=== PATIENT | female | born 1990 | race Two or more races ===

== ENCOUNTER 2020-08-14 08:19 | Outpatient (CLI) | payer OTHER | END 2020-08-14 08:31 | disposition home or self-care (01) | LOC: SONOGRAMA 08:19 | PROVIDERS: ATTEND Obstetrics & Gynecology | DX: N83.292 Other ovarian cyst, left side (principal) ==

== ENCOUNTER 2021-03-19 08:06 | Outpatient (CLI) | payer OTHER | END 2021-03-19 08:16 | disposition home or self-care (01) | LOC: MAMO-SONO 08:06 | PROVIDERS: ATTEND General Practice | DX: N60.11 Diffuse cystic mastopathy of right breast (principal); N60.12 Diffuse cystic mastopathy of left breast; Z12.39 Encounter for other screening for malignant neoplasm of breast ==

== ENCOUNTER 2022-04-15 17:25 | Outpatient (CLI) | payer OTHER | END 2022-04-15 17:55 | disposition home or self-care (01) | LOC: NST 17:25 | PROVIDERS: ATTEND Obstetrics & Gynecology Maternal & Fetal Medicine | DX: Z34.83 Encounter for supervision of other normal pregnancy, third trimester (principal) ==

== ENCOUNTER 2022-05-13 14:43 | Outpatient (CLI) | payer OTHER | END 2022-05-13 15:56 | disposition home or self-care (01) | LOC: NST 14:43 | PROVIDERS: ATTEND Obstetrics & Gynecology Gynecology | DX: Z34.83 Encounter for supervision of other normal pregnancy, third trimester (principal) ==

== ENCOUNTER 2022-05-14 12:00 | Inpatient (IN) | payer OTHER ==
[~2022-05-14] VITALS: Ht 157.5 cm; Wt 2.7 kg
== END 2022-05-17 14:12 | disposition home or self-care (01) | DRG 788 ==
LOC: LDR 12:00 → OB/GYN 05-15 18:39
PROVIDERS: ADMIT Obstetrics & Gynecology Maternal & Fetal Medicine; ATTEND Obstetrics & Gynecology Maternal & Fetal Medicine
PROC: 4A1HXCZ Monitoring of Products of Conception, Cardiac Rate, External Approach (ICD-10-PCS; 2022-05-14)
PROC: 10D00Z1 Extraction of Products of Conception, Low, Open Approach (ICD-10-PCS; principal; 2022-05-14 18:15)
DX: O14.14 Severe pre-eclampsia complicating childbirth (principal); O34.211 Maternal care for low transverse scar from previous cesarean delivery; Z3A.37 37 weeks gestation of pregnancy; Z37.0 Single live birth; Z20.822 Contact with and (suspected) exposure to COVID-19

== ENCOUNTER 2024-03-30 08:21 | Emergency (ER) | payer OTHER ==
[~2024-03-30] VITALS: Ht 157.5 cm; Wt 59.4 kg
[2024-03-30] MEDS ORDERED: KETOROLAC TROMETHAMINE 30 MG VIAL IV ONE (08:45)
[2024-03-30] MEDS ORDERED: KETOROLAC TROMETHAMINE 30 MG VIAL ONE (08:46)
[2024-03-30 09:10] LABS: HEMATOCRIT 31.8 % (36.0-45.00); HEMOGLOBIN 10.4 g/dL (12.0-15.00); MEAN CELL VOLUME 76.2 fL (80.00-100.00); MEAN CORPUSCULAR HEMOGLOBIN 24.9 pg (27.00-32.0); MEAN CORPUSCULAR HGB CONC 32.7 g/dl (32.0-36.0); PLATELET COUNT 168 K/uL (150-450); RED BLOOD COUNT 4.18 M/uL (4.00-6.00)
[2024-03-30 09:11] LABS: RED CELL DISTRIBUTION WIDTH 17.1 % (11.5-14.5)
[2024-03-30 09:30] LABS: PH,URINE 6.5 (5.0-8.0); URINE APPEARANCE Clear; URINE BILIRRUBIN Negative (NEGATIVE); URINE BLOOD Small; URINE COLOR Yellow; URINE GLUCOSE Negative (NEGATIVE); URINE KETONE Negative (NEGATIVE); URINE LEUKOCYTE Moderate; URINE NITRATE Negative; URINE PROTEIN Negative (NEGATIVE); URINE UROBILINOGEN 0.2 E.U./dl
[2024-03-30 09:32] LABS: URINE BACTERIA 57.9 uL (0.0-1933); URINE EPITHELIAL CELLS 3.8 uL (0.0-38.8); URINE RBC 3.6 uL (0.0-20.8); URINE WBC 114.2 uL (0.0-23.2)
== END 2024-03-30 10:07 | disposition home or self-care (01) ==
LOC: ER 08:22
PROVIDERS: Emergency Medicine
DX: N39.0 Urinary tract infection, site not specified (principal); M54.50 Low back pain, unspecified

== ENCOUNTER 2025-04-24 22:54 | Emergency (ER) | payer OTHER ==
[~2025-04-24] VITALS: Ht 160 cm; Wt 57.6 kg
[2025-04-25] MEDS ORDERED: BARIUM SULFATE 450 ML ORAL.SUSP PO ONE (00:04)
[2025-04-25 00:28] LABS: BASO % 0.3 % (0.1-1.2); EOS # 0.26 (0.04-0.54); EOS % 4.0 % (0.7-7.0); LYMPH # 1.93 (1.18-3.74); LYMPH % 29.9 % (19.3-53.1); MEAN PLATELET VOLUME 10.90 fl (9.4-12.4); MONO # 0.58 (0.24-0.82); MONO % 9.0 % (4.7-12.5); NEUT # 3.65 (1.56-6.13); NEUT % 56.6 % (34.0-71.1); RED CELL DISTRIBUTION WIDTH 13.9 % (11.6-14.4)
[2025-04-25 00:54] LABS: INR 1.04
[2025-04-25 01:00] LABS: ALT/SGPT 12 U/L (12-78); AST/SGOT 14 U/L (15-37); BILIRUBIN TOTAL 0.20 mg/dL (0.3-1.2); BUN CREA RATIO 12 (7.0-25.0); CREATININE SERUM 0.76 mg/dL (0.55-1.02); GFR 86.60; GLOBULINA 4.2 G/DL (2.4-3.5); GLUCOSE FASTING 87 mg/dL (65-100); OSMOLALITY SERUM 281 MOSM/KG (275-295)
[2025-04-25 01:01] LABS: HCG QUANTITATIVE < 1 mUI/mL (1-3)
[2025-04-25 02:03] LABS: URINE APPEARANCE Clear; URINE BILIRRUBIN Negative (NEGATIVE); URINE BLOOD NHT; URINE COLOR Yellow; URINE GLUCOSE Negative (NEGATIVE); URINE KETONE Negative (NEGATIVE); URINE LEUKOCYTE Negative; URINE NITRATE Negative; URINE PROTEIN Negative (NEGATIVE); URINE UROBILINOGEN 0.2 E.U./dl
[2025-04-25 02:08] LABS: URINE BACTERIA 651.6 uL (0.0-1933); URINE EPITHELIAL CELLS 53.2 uL (0.0-38.8); URINE RBC 15.2 uL (0.0-20.8); URINE WBC 30.9 uL (0.0-23.2)
[2025-04-25 02:09] LABS: URINE CAST 0.00 uL (0.0-1.40)
[2025-04-25] MEDS ORDERED: LEVSIN/SL0.125 MG SL (04:44)
[2025-04-25] MEDS ORDERED: CEPHALEXIN500 MG PO (04:44)
== END 2025-04-25 04:55 ==
LOC: ER 22:54
PROVIDERS: General Practice
DX: N39.0 Urinary tract infection, site not specified (principal); N20.0 Calculus of kidney